=== PATIENT | male | born 1980 | race Caucasian/White ===

== ENCOUNTER 2021-08-30 15:48 | Emergency (ER) | payer OTHER, SELFPAY ==
[2021-08-30 15:58] VITALS: BP 137/72; PULSE 97; RESP 18; TEMP 37; O2SAT 97
--- NOTE | 2021-08-30 16:48 | ED.URI ---
HPI - URI/Sore Throat General Chief Complaint: Upper Respiratory Infection Stated Complaint: Sore Throat/Sinus Congestion Time Seen by Provider: 08/30/21 16:48 Source: patient, RN notes reviewed and old records reviewed Mode of arrival: ambulatory Limitations: no limitations History of Present Illness HPI Narrative: 41-year-old male who presents to [facility] with complaints of headache, sinus congestion and drainage and cough which started about a week ago. He reports that his symptoms improved for a few days then have progressively gotten worse. Patient reports that cough is worse at night and he isn't resting well, he is expectorating some greenish yellowish sputum and he has some chest soreness related to cough. He reports that today he has developed some right ear pain with ringing in his ear. He states that he has had intermittent fevers around a 100F he is taking Mucinex and also some Ibuprofen.. MD elicited complaint: cough, sore throat, nasal congestion and other (headache and ear pain) Pertinent past history: sinusitis Onset (ago): week(s) (1) Consistency: progressively worsening Description of mucous: yellow Able to tolerate fluids by mouth: Yes Relieving factors: nothing Treatments prior to arrival: ibuprofen and other (Mucinex) Related Data Home Medications Medication Instructions Recorded Confirmed bupropion HCl 150 mg PO DAILY 08/30/21 08/30/21 celecoxib 100 mg PO BID 08/30/21 08/30/21 Allergies Allergy/AdvReac Type Severity Reaction Status Date / Time No Known Allergies Allergy Verified 08/30/21 16:23 Review of Systems Review of Systems: CONSTITUTIONAL: low grade fever, chills, or sweats. EYES: Denies visual changes, redness, or discharge. ENT:Positive for rhinorrhea, congestion, sore throat, right otalgia. CARDIOVASCULAR: Denies chest pain, palpitations, or edema. RESPIRATORY: Positive for productive cough with no dyspnea or noted wheezing GASTROINTESTINAL: Denies abdominal pain, nausea, vomiting, or diarrhea. GENITOURINARY: Denies dysuria or hematuria. SKIN: Denies rash or itching. MUSCULOSKELETAL: Denies back pain, joint pain, or myalgia. NEUROLOGIC: Frontal headache,no numbness, or weakness. PSYCHIATRIC: positive for history of anxiety or depression. All systems reviewed & are unremarkable except as noted in HPI and below [facility] Past Medical History Medical History (Updated 08/31/21 @ 11:16 by Michelle Randhawa NP) Anxiety COVID April 2020 Lipoma of pancreas determined by biopsy Surgical History Surgical History (Updated 08/31/21 @ 11:16 by Michelle Randhawa NP) H/O foot surgery History of placement of ear tubes History of tonsillectomy Social History Social History (Updated 08/31/21 @ 11:16 by Michelle Randhawa NP) Smoking packs per day: 1 Smoking cigarettes per day: 20.0 Years smoked: 5 Smoking pack-years: 5.00 Smoking status: Current every day smoker Tobacco type: cigarettes Alcohol intake: current Alcohol use details: social Substance use type: does not use Living arrangements: with family Gender identity (if verbalized by the patient): Male Comments At time of signature, agree with nursing past medical, surgical, social and family history. There is no relevant family history pertinent to the presenting complaint Exam Narrative: GENERAL: Well-appearing, well-nourished, and in no acute distress. HEAD: Normocephalic, atraumatic. EYES: PERRLA and EOMI. ENT: Nares red with clear rhinorrhea no epistaxis. Mucous membranes moist.Right TM red and bulging, Left TM normal with good light reflex, throat red with no lesions or exudates no tonsils presnet. NECK: Supple.no lymphadenopathy CHEST: Clear to auscultation. No respiratory distress.cough which is productive, SAO2 97% on room air HEART: Regular rate and rhythm. No murmur heard. Normal peripheral pulses. ABDOMEN: Soft, nontender, nondistended, normal active bowel sounds. EXTREMITIES: Normal range of m
== END 2021-08-30 17:05 | disposition home or self-care (01) ==
PROVIDERS: Emergency Provider Registered Nurse
DX: H66.91 Otitis media, unspecified, right ear (principal); J06.9 Acute upper respiratory infection, unspecified; F41.9 Anxiety disorder, unspecified; Z86.16 Personal history of COVID-19; F17.210 Nicotine dependence, cigarettes, uncomplicated
CPT/HCPCS: 99213; G0463

== ENCOUNTER 2022-10-10 15:52 | Emergency (ER) | payer OTHER, SELFPAY ==
[2022-10-10 15:58] VITALS: BP 125/68; PULSE 90; RESP 16; TEMP 36.6; O2SAT 92
--- NOTE | 2022-10-10 16:07 | ED.GENADULT ---
HPI - General Adult General Chief complaint: Upper Respiratory Infection Stated complaint: sinus/upper respiratory Source: patient Mode of arrival: ambulatory Limitations: no limitations History of Present Illness HPI narrative: Patient presents for evaluation of sinus symptoms. Symptom onset 1 week ago. Reports thick yellow drainage from his nares. He developed a fever yesterday. He has some left-sided ear pain and occasional cough. He has underlying asthma. Denies any shortness of breath. He states his son has respiratory symptoms as well. He smokes about 1 ppd. He has been using his albuterol inhaler which seems to help. Related Data Allergies Allergy/AdvReac Type Severity Reaction Status Date / Time Cultivated Oat Pollen Allergy Intermediate Uncoded 07/13/22 15:04 G.Domesticus Dust Mite Allergy Intermediate Uncoded 07/13/22 15:04 Review of Systems Review of Systems: CONSTITUTIONAL: Reports fever. Denies chills, or sweats. EYES: Denies visual changes, redness, or discharge. ENT: Reports sinus congestion, mucopurulent discharge from the nares, and left-sided otalgia. Denies sore throat. CARDIOVASCULAR: Denies chest pain, palpitations, or edema. RESPIRATORY: Reports productive cough yellow sputum. Denies shortness of breath. GASTROINTESTINAL: Denies abdominal pain, nausea, vomiting, or diarrhea. GENITOURINARY: Denies dysuria or hematuria. SKIN: Denies rash or itching. MUSCULOSKELETAL: Denies back pain, joint pain, or myalgia. NEUROLOGIC: Denies headache, numbness, dizziness, or weakness. PSYCHIATRIC: Denies anxiety or depression. [facility] Past Medical History Medical History Anxiety COVID April 2020 Lipoma of pancreas determined by biopsy Surgical History Surgical History H/O foot surgery History of placement of ear tubes History of tonsillectomy Family History Family History Mother Family history non-contributory Social History Social History Smoking packs per day: 1 Smoking cigarettes per day: 20.0 Years smoked: 5 Smoking pack-years: 5.00 Smoking status: Current every day smoker Tobacco type: cigarettes Alcohol intake: current Alcohol use details: social Substance use type: does not use Living arrangements: with family Gender identity (if verbalized by the patient): Male Exam Narrative: GENERAL: Well-appearing, well-nourished, and in no acute distress. HEAD: Normocephalic, atraumatic. EYES: PERRLA and EOMI. ENT: There is thick yellow drainage in bilateral nares. Bilateral frontal and maxillary sinus tenderness. Mucous membranes moist. There is posterior pharyngeal erythema without exudate. Uvula is midline. Bilateral TMs pearly zuniga nonbulging NECK: Supple. No adenopathy or masses. No carotid bruits or JVD CHEST: Clear to auscultation. No respiratory distress. No wheezes rales or rhonchi HEART: Regular rate and rhythm. No murmur heard. Normal peripheral pulses. ABDOMEN: Soft, nontender, nondistended, normal active bowel sounds. EXTREMITIES: Normal range of motion. No edema. SKIN: Warm, dry, no rash. NEURO: No focal deficits. Alert and oriented x3. PSYCH: Normal mood and affect. Course Course Emergency Course: This is a 42-year-old male who presented for evaluation of sinus symptoms. He meets criteria for ABRS based upon duration of times which she has been symptomatic, nature of discharge presence of fever. Will discharge with Augmentin. Advise on smoking cessation. Over the counter meds for symptom management. Follow up outpatient for further evaluation treatment and go to the ER for worsening symptoms. Patient in agreement with plan of care put Level of Care: Express Care Visit Vital Signs Vital signs:
== END 2022-10-10 16:10 | disposition home or self-care (01) ==
PROVIDERS: Emergency Provider Nurse Practitioner; PCP Internal Medicine
DX: J01.10 Acute frontal sinusitis, unspecified (principal); F17.210 Nicotine dependence, cigarettes, uncomplicated; Z86.16 Personal history of COVID-19; J45.909 Unspecified asthma, uncomplicated
CPT/HCPCS: 99213; G0463